=== PATIENT | female | born 1990 | race Two or more races ===

== ENCOUNTER → 2016-07-21 | Outpatient (CLI) | payer OTHER ==
--- NOTE | 2016-07-21 16:03 | NUR ---
ALCOHOL/DRUG TEST AND EVALUATION 2 HRS: Clt is present as directed by the courts on several charges. See written eval for test results and recommendations.
--- NOTE | 2016-07-27 11:26 | CDE ---
ADMIT: 07/21/2016 RM/LOC: [facility] MR#: [id number] [address] [facility] [address] [place], [place] [id number] TANYA QUARLES [address] [place] [address] Chemical Dependency Evaluation SEX: F AGE: 25 : 1990 A. DEMOGRAPHICS: NAME: Tanya Quarles DATE OF : 1990 EVALUATING COUNSELOR: CAMMIE Johnston LADC DATE OF EVALUATION: 07/21/2016 B. PRESENTING PROBLEM/CHIEF COMPLAINT: Client reported that on March 28, she was arrested for a warrant out of [place]. She was also charged with felony possession of meth, possession of marijuana, possession of paraphernalia, and shoplifting. She is on probation out of [place], however, is here with Chris Watson, and her trial for the [facility] case will begin in August. C. MEDICAL HISTORY: Client reported in 2010 she had knee surgery, as she tore her ACL and meniscus. She also had a breast enhancement in 2013. Other than that, she has not been under any doctor's care and has no health concerns at this time. D. 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 She is currently not using that degree and just got hired yesterday at [employer]. She has future goals of going to school to be a beautician. She denies being in the . E. ALCOHOL/DRUG ASSESSMENT SUMMARY: ALCOHOL: Age of first use was 14. Client reported in the beginning, she partied on the weekends and would drink enough to get drunk. In her 20s, her tolerance increased, and was still partying on the weekends, but it took more for her to get drunk, so she did not know how much she drank. Her date of last use was 03/23/16. MARIJUANA: Age of first use was 13. She stated in her teens, she just smoked once in a while. In her 20s, she began smoking on a daily basis and would smoke up to an eighth of an ounce a week. Date of last use was 03/23/16. COCAINE: Age of first use was 18. In her teens, she stated she snorted every weekend. In her 20s, she began using IV; however, she only used IV a few times because it scared her. She was using approximately 2 grams every weekend and her date of last use was 03/23/16. METHAMPHETAMINE: Age of first use was 23. She stated she began smoking it, for about six months, then began using IV. She was using an 1/8 ounce every two days, using on a daily basis. Date of last use was 03/23/16. HALLUCINOGENS: She stated in her early 20s, she used mushrooms about every weekend for a year and acid a few times. Date of last use was 03/23/16. HEROIN: Age of first use was 21. She stated for around a year, she used ADMIT: 07/21/2016 RM/LOC: [facility] MR#: [id number] [address] [place] [id number] TANYA QUARLES [address] [place] [address] Chemical Dependency Evaluation SEX: F AGE: 25 : 1990 three or four times a week. She did not know how much, due to her ex-boyfriend being the one who was injecting her. Date of last use was 03/23/16. PRESCRIPTION DRUGS: Age of first use was 19. She stated she has used pain pills, benzos, and Adderall. She has used them off and on until age 25. OTHER DRUGS (INHALANTS, OVER THE COUNTER, ETC): No use reported. NICOTINE: Age of first use was 13. She smokes about half a pack a day. Client reported from the time she first started using, she was always under the influence of something. Negative consequences include: She lost her children, she was unsocial, she did not work, she was depressed, broke, unhealthy, and had legal problem. F. LEGAL HISTORY: Client reported when she was younger, she had three MIP charges. On 03/23/16, she was picked up on a warrant for attempt to possess methamphetamine and eventually was placed on probation. When she was picked up, she had drugs on her, and was also charged with shoplifting, felony possession of meth, possession of marijuana and possession of paraphernalia. These charges are pending at this time. G. FAMILY/SOCIAL/PEER HISTORY: Client reported she was born in [place] and lived in [facility]. She was raised by her parents, who are still . She stated her upbringing was good and normal and her relationships with both of her parents are good. She also stated she has two children; her first one was born when she was 15 and he lives with his dad, and she has a 5-year-old daughter. She reported she did sign over temporary custody when she got into trouble and now both of their father's will not let her see the kids. She is currently in a relationship and has been for approximately 2-3 months. She has a sister and a brother. Client prefers to associate with people who are not using. She has begun attending meetings, so hangs out more now with people who are not using. H. PSYCHIATRIC/BEHAVIORAL HISTORY: Client denies ever being suicidal and has never been to any type of counseling or therapy, inpatient or outpatient, for mental health or behavioral problem. She has never been to treatment. She is attending AA meetings and goes to about approximately two meetings a week. She does have someone whom she would like to ask to be her sponsor. I. COLLATERAL INFORMATION: I did try to contact her weapons officer naval activity, who was in a class and could not speak. I did leave him a message. ADMIT: 07/21/2016 RM/LOC: [facility] MR#: [id number] [address] [id number] TANYA QUARLES [facility] [place] [address] Chemical Dependency Evaluation SEX: F AGE: 25 : 1990 THE DRINKER TYPE RATING: Is a measure of how the client perceives their own drinking and/or using. This rating is indicative of how resistant or accepting the person is to the drinking problem. The client chose their rating from the following classifications: ALCOHOL Total Abstainer Light Social (non-problem) Drinker Moderate Social (non-problem) Drinker User Heavy Social (non-problem)Drinker Problem Drinker Alcoholic OTHER DRUG Nonuser Light Social (non-problem) User Moderate Social (non-problem) User Heavy Social (non-problem) User Problem User Addicted/Dependent The client rated heavy social non problem drinker and an addicted dependent person of other drugs. SUBSTANCE ABUSE SUBTLE SCREENING INVENTORY (SASSI): The SASSI is an assessment tool specifically designed to provide a clearer picture of what lies beneath the facade presented by most patients or clients. Scores on this assessment aid in distinguishing nonabusers from abusers, alcoholics from drug abusers and nondefensive clients from defensive ones. The incorporation of a "denial scale" further enhances the ability to make an accurate recommendation. Client scores are: Face Valid Alcohol (FVA): 17 Face Valid Other Drugs (FVOD): 12 Symptoms (SYM): 10 Obvious Attributes (OAT): 10 Subtle Attributes (SAT): 6 Defensiveness (DEF): 2 Supplemental Addiction Measure (TANA): 11 Family versus Controls (FAM): 7 Correctional (COR): 12 Random Answering Pattern (RAP): 0 ADMIT: 07/21/2016 RM/LOC: [facility] MR#: [id number] [address] [facility] [address] [place] [id number] TANYA QUARLES [address] [place] [address] Chemical Dependency Evaluation SEX: F AGE: 25 : 1990 These scores would indicate that she has a high probability of having a substance dependence disorder. We administered the ASI. Please see attached summary sheet. K. CLINICAL IMPRESSION: Ms. Quarles was very open and honest about her drug use and the problems that it has caused. She stated even though she has been sober and clean since March, she still wants to make her recovery first knowing that without it, she will not get to see her children and she will not have anything else. DIAGNOSES: 1. 304.30, Cannabis Use Disorder, severe. 2. 304.40, Stimulant Use Disorder, severe. 3. 304.20, Cocaine Use Disorder, severe. L. RECOMMENDATIONS PRESENTED TO CLIENT: It is recommended that she participate in an intensive outpatient treatment program, continue attending AA and/or NA meetings on a regular basis and learn how to work a strong program of recovery which includes remaining abstinent from all drugs. If she is unable to remain clean and sober, she will be recommended to check into residential treatment. Izabela CLIENT/FAMILY RESPONSE: She is in agreement with this. ADMIT: 07/21/2016 RM/LOC: [facility] MR#: [id number] [address] [facility] [address] [place] [phone] TANYA QUARLES [address] [address] Chemical Dependency Evaluation SEX: F AGE: 25 : 1990 [facility] CLINICAL ASSESSMENT CRITERIA: Low/Medium/High Dimension 1 = Intoxication and Withdrawal (i.e. history of withdrawal, level of current use): Low. Dimension 2 = Medical (i.e. , diabetes, medications, chronic conditions): Low. Dimension 3 = Emotional/Behavior Conditions (i.e. psych history, impulsivity, depression, anxiety, trauma history): Medium. Dimension 4 = Treatment Acceptance/Resistance (i.e. past history, minimization/blame, acknowledgement of problem, pressure to seek treatment, does not feel they have a problem): Medium. Dimension 5 = Relapse Potential (i.e. inability to abstain, use despite consequences, significant preoccupation, relapse despite outpatient treatment attempts): Medium. Dimension 6 = Recovery/Living Environment (i.e. current users reside in environment, family attitude, lack of consistent adult support in living environment, high exposure to using in social/work environment): Medium. CRIMINOGENIC RISK FACTORS: Low/Moderate/High Antisocial Attitudes: Medium. Antisocial Peers: Medium. Self Control Skills: Medium. Family Dysfunction: High. Past Criminality: High. CAMMIE Johnston LADC/ dmitri JOB #: [id number] CC:
== END | disposition home or self-care (01) ==
LOC: ADTC.GI 12:38
DX: F12.20 Cannabis dependence, uncomplicated (principal); F15.20 Other stimulant dependence, uncomplicated; F14.20 Cocaine dependence, uncomplicated